=== PATIENT | female | born 1955 | race Caucasian/White ===

== ENCOUNTER 2018-01-29 08:18 | Emergency (ER) | payer OTHER ==
[2018-01-29 08:26] VITALS: RESP 18
--- NOTE | 2018-01-29 08:42 | ED ---
General Adult HPI - General Chief complaint: Head Injury Stated complaint: Fell/hit head Time Seen by Provider: 01/29/18 08:27 Source: patient, family, RN notes reviewed Mode of arrival: wheelchair Limitations: no limitations - History of Present Illness Initial comments: 62-year-old female presenting status post fall with head injury. Patient slipped on ice at approximately 7 AM which is an hour and half prior to presentation liking the back of her head. She did note a hematoma, no no bleeding or laceration. Patient currently takes 81 mg of aspirin daily. No anticoagulation. There was no loss of consciousness. No nausea or vomiting. Patient denies any focal numbness or weakness. No vision changes. Patient is otherwise healthy. Denies any other injury, no extremity pain, no chest pain no abdominal pain. No back pain. - Related Data Allergies Allergy/AdvReac Type Severity Reaction Status Date / Time No Known Allergies Allergy Verified 01/29/18 08:26 Review of Systems ROS Statement: Those systems with pertinent positive or pertinent negative responses have been documented in the HPI. ROS Other: All systems not noted in ROS Statement are negative. Past Medical History Past Medical History: Cancer Additional Past Medical History / Comment(s): breast cancer History of Any Multi-Drug Resistant Organisms: None Reported Past Surgical History: Breast Surgery Past Psychological History: No Psychological Hx Reported Smoking Status: Never smoker Past Alcohol Use History: Occasional Past Drug Use History: None Reported General Exam Limitations: no limitations General appearance: alert, in no apparent distress Head exam: Present: normocephalic. Absent: atraumatic (3 cm hematoma on the occipital region, no laceration or bleeding. No palpable skull fracture) Eye exam: Present: normal appearance, PERRL, EOMI Neck exam: Present: normal inspection, full ROM. Absent: tenderness, meningismus Respiratory exam: Present: normal lung sounds bilaterally. Absent: respiratory distress, wheezes Cardiovascular Exam: Present: regular rate, normal rhythm GI/Abdominal exam: Present: soft. Absent: distended, tenderness, guarding Extremities exam: Present: normal inspection, normal capillary refill. Absent: pedal edema Back exam: Present: normal inspection Neurological exam: Present: alert, oriented X3, CN II-XII intact, normal gait. Absent: motor sensory deficit Psychiatric exam: Present: normal affect, normal mood Skin exam: Present: warm, dry, intact. Absent: cyanosis, diaphoretic Course Vital Signs 01/29/18 08:23 Temperature 98.5 F Pulse Rate 100 Respiratory 18 Rate Blood Pressure 181/99 O2 Sat by Pulse 98 Oximetry Medical Decision Making - Medical Decision Making 62-year-old female presenting status post slip and fall with occipital head trauma. No alarming features on history or physical exam. CT of the head and cervical spine is obtained, negative for intracranial hemorrhage, negative for fracture or subluxation of the cervical spine. Diagnosis: Closed head injury Disposition Clinical Impression: Closed head injury Disposition: HOME SELF-CARE Condition: Good Instructions: Concussion (ED) Referrals: Dima Nino MD [Primary Care Provider] - 1-2 days Time of Disposition: 09:17
--- NOTE | 2018-01-29 09:05 | CT ---
EXAMINATION TYPE: CT brain julieth marie DATE OF EXAM: 01/29/2018 COMPARISON: NONE HISTORY: Slipped on ice, struck back of head on driveway CT DLP: [address] of the brain was performed. The ventricles, basal cisterns and sulci overlying the cerebral convexities demonstrate mild enlargem ent. There is no evidence for intracranial hemorrhage or sulcal effacement. There is decreased attenuatio n about the periventricular white matter and deep white matter of both cerebral hemispheres, compatib le with chronic small vessel ischemia. No mass effects are seen. If symptoms persist consider MRI. Osseous calvarium is intact. Occipital scalp hematoma. IMPRESSION: 1. Age related atrophic and chronic small vessel ischemic change without acute intracranial process seen at this time. CT Cervical Spine: Unenhanced CT of the cervical spine was performed with bone and soft tissue window settings submitted . Coronal and sagittal reconstruction is obtained. There is normal alignment and prevertebral soft tissues. No evidence for acute cervical fracture . Scattered degenerative disc disease and spondylosis. Biapical scarring. IMPRESSION: 1. No evidence for acute fracture or subluxation of the cervical spine.
[2018-01-29 09:28] VITALS: BP 143/71; PULSE 104; TEMP 98
== END 2018-01-29 09:36 | disposition home or self-care (01) ==
LOC: EC 08:18
DX: S00.03XA Contusion of scalp, initial encounter (principal); Z85.3 Personal history of malignant neoplasm of breast; Z79.82 Long term (current) use of aspirin; W00.0XXA Fall on same level due to ice and snow, initial encounter
CPT/HCPCS: 70450; 72125; 99283

== ENCOUNTER 2018-11-20 16:33 | Inpatient (IN) | payer MEDICARE, OTHER ==
[2018-11-20] MEDS ORDERED: SODIUM CHLORIDE 0.9% 1,000 ML IV STA (16:37)
[2018-11-20] MEDS ORDERED: NITROGLYCERIN SL TABS 0.4 MG TAB SUBLINGUAL STA (16:37)
--- NOTE | 2018-11-20 16:43 | ED ---
Chest Pain HPI - General Stated Complaint: CHEST PAIN Time Seen by Provider: 11/20/18 16:33 Source: patient, family, EMS, RN notes reviewed Mode of arrival: EMS - History of Present Illness Initial Comments: This is a 63-year-old female with a benign past medical history states she had the onset about one half hours of retrosternal chest discomfort felt like indigestion. She states the pain initially was 6-7/10 severity she was given nitroglycerin times one as well as 4 baby aspirin the pain is down to about a 4/ 10 now. EKG was transmitted which did show evidence of a left exodeviation nonspecific anteroseptal changes no cough or phlegm production she did have some sweats with this earlier. He has no known heart or lung disease is a nonsmoker he states she's been having this pain for a couple weeks. MD Complaint: chest pain - Related Data Home Medications Medication Instructions Recorded Confirmed Alendronate Sodium [Fosamax] 70 mg PO MOTTA 01/29/18 11/20/18 Aspirin 81 mg PO DAILY 01/29/18 11/20/18 Multivitamins, Thera [Multivitamin 1 tab PO DAILY 01/29/18 11/20/18 (formulary)] Simvastatin [Zocor] 20 mg PO QAM 01/29/18 11/20/18 Calcium Carbonate [Calcium] 600 mg PO DAILY 11/20/18 11/20/18 Allergies Allergy/AdvReac Type Severity Reaction Status Date / Time No Known Allergies Allergy Verified 11/20/18 16:52 Review of Systems ROS Statement: Those systems with pertinent positive or pertinent negative responses have been documented in the HPI. ROS Other: All systems not noted in ROS Statement are negative. Past Medical History Past Medical History: Cancer Additional Past Medical History / Comment(s): breast cancer History of Any Multi-Drug Resistant Organisms: None Reported Past Surgical History: Breast Surgery Past Psychological History: No Psychological Hx Reported Smoking Status: Never smoker Past Alcohol Use History: Occasional Past Drug Use History: None Reported General Exam - General Exam Comments Initial Comments: This is a well-developed well-nourished awake alert oriented x 3 female General appearance: alert, anxious Head exam: Present: atraumatic, normocephalic, normal inspection Eye exam: Present: normal appearance, PERRL, EOMI. Absent: scleral icterus, conjunctival injection, periorbital swelling ENT exam: Present: normal exam, mucous membranes moist Neck exam: Present: normal inspection, full ROM, other (No stridor JVD or bruits ). Absent: tenderness, meningismus, lymphadenopathy Respiratory exam: Present: normal lung sounds bilaterally. Absent: respiratory distress, wheezes, rales, rhonchi, stridor Cardiovascular Exam: Present: regular rate, normal rhythm, normal heart sounds. Absent: systolic murmur, diastolic murmur, rubs, gallop, clicks GI/Abdominal exam: Present: soft, normal bowel sounds. Absent: distended, tenderness, guarding, rebound, rigid Extremities exam: Present: normal inspection, full ROM, normal capillary refill. Absent: tenderness, pedal edema, joint swelling, calf tenderness Back exam: Present: normal inspection Neurological exam: Present: alert, oriented X3, CN II-XII intact Psychiatric exam: Present: normal affect, normal mood Skin exam: Present: warm, dry, intact, normal color. Absent: rash Course Vital Signs 11/20/18 11/20/18 16:36 17:00 Temperature 98.5 F Pulse Rate 88 Respiratory 18 18 Rate Blood Pressure 148/84 148/84 O2 Sat by Pulse 97 96 Oximetry - Reevaluation(s) Reevaluation #1: 11/20/18 18:36 Patient still had some chest discomfort which should resolve ultimately. The patient d-dimer was elevated a CAT scan was performed that showed no evidence of pulmonary embolism was some evidence of a ascending aortic aneurysm please see the report Reevaluation #2: 11/20/18 18:38 I did discuss findings with patient family after all results were obtained is elevation of the troponin EKG showed bundle-branch block pattern of undetermined age. Chest Pain MDM - MDM I did review the imaging. It did show the findings as above I did discuss the case with Dr. Feldman and with Dr. Washington Critical Care Time Critical Care Time: Yes Critical Care Time: 39 minutes of critical care time which includes initial presentation with history physical labs x-rays several reevaluation patient responsive therapy several discussions with patient and family members. Discussed with the admitting physician and with cardiology Dr. feldman and Dr. Washington admission orders neck mentation the above Disposition Clinical Impression: Non-ST elevation myocardial infarction (NSTEMI), Bundle branch block, left, Elevated d-dimer Disposition: ADMITTED IP TO THIS HOSP Condition: Stable Referrals: Dima Nino MD [Primary Care Provider] - 1-2 days
[2018-11-20 17:15] LABS: Basophils # (A) 0.1 k/uL (0-0.2); Basophils % (A) 1 %; Eosinophils # (A) 0.2 k/uL (0-0.7); Eosinophils % (A) 2 %; HCT 39.7 % (34.0-46.0); HGB 13.2 gm/dL (11.4-16.0); Lymphocytes # (A) 1.2 k/uL (1.0-4.8); Lymphocytes % (A) 14 %; MCHC 33.2 g/dL (31.0-37.0); MCV 90.2 fL (80.0-100.0); Mean Platelet Volume 6.7; Monocytes # (A) 0.4 k/uL (0-1.0); Monocytes % (A) 4 %; Neutrophils # (A) 6.4 k/uL (1.3-7.7); Neutrophils % (A) 78 %; Platelet Count 294 k/uL (150-450); RDW 13.6 % (11.5-15.5); WBC 8.3 k/uL (3.8-10.6)
[2018-11-20 17:24] LABS: ALT 48 U/L (9-52); AST 59 U/L (14-36); Albumin 4.3 g/dL (3.5-5.0); Alkaline Phosphatase 62 U/L (38-126); Anion Gap 12 mmol/L; Blood Urea Nitrogen 18 mg/dL (7-17); Calcium 9.8 mg/dL (8.4-10.2); Carbon Dioxide 19 mmol/L (22-30); Chloride 106 mmol/L (98-107); Glucose 104 mg/dL (74-99); Magnesium 2.2 mg/dL (1.6-2.3); Potassium 4.2 mmol/L (3.5-5.1); Sodium 137 mmol/L (137-145); Total Bilirubin 1.1 mg/dL (0.2-1.3); Total Protein 7.5 g/dL (6.3-8.2)
[2018-11-20 17:25] LABS: Partial Thromboplastin Time 23.7 sec (22.0-30.0); Prothrombin Time 10.6 sec (9.0-12.0)
[2018-11-20 17:28] LABS: D-Dimer 0.93 mg/L FEU (<0.60)
[2018-11-20 17:40] LABS: Creatine Kinase MB 6.6 ng/mL (0.0-2.4)
[2018-11-20 17:53] LABS: Troponin I 0.191 ng/mL (0.000-0.034)
--- NOTE | 2018-11-20 18:06 | CT ---
EXAMINATION TYPE: CT angio chest DATE OF EXAM: 11/20/2018 5:56 PM COMPARISON: None HISTORY: Chest pain today CT DLP: 262.8 mGycm Automated exposure control for dose reduction was used. CONTRAST: CTA scan of the thorax is performed with IV Contrast, patient injected with 100 mL of Isovue 370, pul monary embolism protocol. There are 3-D post processed images.. FINDINGS: There is minimal scarring and subsegmental atelectasis at the lung bases. Heart appears enlarged. The re is no pericardial effusion. There is no pleural effusion. There is small hiatal hernia. There is a 1 cm cyst in the left lobe of the liver. There are no hilar masses. There is no mediastinal adenopathy. Thoracic aorta is is atheromatous. The re is mild aneurysm of ascending aorta measures 4.1 cm. There is no contrast in the aorta for evaluat ion of the lumen. There is normal contrast opacification of the pulmonary arteries. There are no filling defects. There is some mild spurring in the thoracic spine. I see no bony destructive process. IMPRESSION: NO EVIDENCE OF PULMONARY EMBOLISM. MILD ANEURYSM ASCENDING AORTA. MILD FIBROTIC CHANGES AT THE LUNG BASES. Cardiomegaly.
[2018-11-20] MEDS ORDERED: HEPARIN SODIUM,PORCINE 5,000 UNIT/ML 1 ML VIAL IV ONE (18:43)
[2018-11-20] MEDS ORDERED: NITROGLYCERIN SL TABS 0.4 MG TAB SUBLINGUAL PRN (18:43)
[2018-11-20] MEDS ORDERED: FUROSEMIDE 10 MG/ML 4 ML VIAL IV STA (18:57)
[2018-11-20] MEDS: SODIUM CHLORIDE 0.9% 1,000 ML IV SCH (18:57)
[2018-11-20] MEDS: HEPARIN SOD,PORK IN 0.45% NACL 25,000 UNIT in 0.45% NACL 1 250ML.BAG IV SCH (19:27)
[2018-11-20 23:45] LABS: Creatine Kinase MB 48.3 ng/mL (0.0-2.4)
[2018-11-20 23:51] LABS: Troponin I 7.33 ng/mL (0.000-0.034)
[2018-11-21] MEDS: NITROGLYCERIN OINT 1 INCH/GM PACKET TOPICAL SCH ×2 (01:20→09:19)
[2018-11-21 06:32] LABS: Cholesterol 190 mg/dL (<200); HDL Cholesterol 51 mg/dL (40-60); LDL Cholesterol,Calculated 114 mg/dL (0-99); Triglycerides 126 mg/dL (<150)
[2018-11-21 06:50] LABS: Creatine Kinase MB 37.2 ng/mL (0.0-2.4)
[2018-11-21 06:59] LABS: Troponin I 6.43 ng/mL (0.000-0.034)
--- NOTE | 2018-11-21 07:01 | HP ---
HISTORY AND PHYSICAL DATE OF SERVICE: 11/20/2018 CHIEF COMPLAINT: Chest pain. HISTORY OF PRESENT ILLNESS: This 63-year-old woman with a past medical history of multiple medical problems including breast cancer, history of breast surgery being followed by Dr. Nino in the outpatient setting was complaining of chest pain. The patient had a pain, which felt like indigestion, initially 6 to 7 in intensity where patient took 4 baby aspirins and EKG showed ST-T changes and patient came to [facility] and admitted for further evaluation and treatment. The troponins are found to be 0.191 and 7.330. The patient has been closely monitored. There is no history of any fever, rigors. No history of headache, loss of consciousness or seizures. The pain has subsided at this time. EKG showed left bundle branch block. PAST MEDICAL HISTORY: History of breast cancer, history of breast surgery. MEDICATIONS: Medications prior to admission include: 1. Zocor 20 mg q.a.m. 2. Multivitamins 1 p.o. daily. 3. Calcium 600 mg p.o. daily. 4. Aspirin 81 mg daily. 5. Fosamax 70 mg Sunday. ALLERGIES: Allergies are none. FAMILY HISTORY: No history of heart disease or strokes in the family. SOCIAL HISTORY: No history of smoking. No history of alcohol intake. REVIEW OF SYSTEMS: ENT: No history of diminished hearing or diminished vision. CARDIOVASCULAR SYSTEM: As mentioned earlier. RESPIRATORY SYSTEM: As mentioned earlier. GI: No nausea. : No dysuria. NERVOUS SYSTEM: No numbness or weakness. ALLERGY/IMMUNOLOGY: No history of asthma. MUSCULOSKELETAL: As mentioned earlier. HEMATOLOGY/ONCOLOGY: No history of anemia. ENDOCRINE: No history of diabetes or hypothyroidism. CONSTITUTIONAL: As mentioned earlier. DERMATOLOGY: Negative. RHEUMATOLOGY: Negative. PSYCHIATRY: As mentioned earlier. PHYSICAL EXAMINATION: The patient is alert and oriented x3. Pulse 95, blood pressure 110/63, respiration 21, temperature 98 degrees, pulse ox 93% on room air. HEENT: Conjunctivae normal. NECK: No jugular venous distention. CARDIOVASCULAR: S1, S2 muffled. RESPIRATORY: Breath sounds diminished at the bases. No rhonchi. No crackles. ABDOMEN: Soft, nontender. No mass palpable. LEGS: No edema, no swelling. NERVOUS SYSTEM: Higher function as mentioned. Moves all 4 limbs. No focal deficits. LYMPHATICS: No lymphadenopathy of the neck, axillae or groin. SKIN: No ulcer, rash or bleeding. LABS: Labs are at this time shows CBC within normal limits and D-dimer is 0.93. The troponins noted. Creatine kinase noted. ASSESSMENT: 1. Chest pain, possible acute non-ST segment elevation myocardial infarction with troponin 7.330. 2. Left bundle branch block on EKG. 3. History of breast cancer. RECOMMENDATIONS AND DISCUSSION: In this 63-year-old woman who presented with multiple complex medical issues, will monitor the patient closely. Continue the current medications, continue symptomatic treatment as well as unstable angina protocol, cardiology consult and possible cardiac cath. Otherwise, prognosis guarded because of multiple complex medical issues. Further recommendations to follow. See orders and notes for details. Copy of dictation to Dr. Nino who is the primary physician. MMMAE / DEO: [id number] / MTDD
--- NOTE | 2018-11-21 08:39 | P.CRDCN ---
History of Present Illness Consult date: 11/21/18 Requesting physician: Ralph Gonzales Consult reason: non-[facility]-wave [facility] Chief complaint: Chest pain History of present illness: This is a pleasant 63-year-old female with no prior documented history of hypertension, nondiabetic, nonsmoker, she does have hyperlipidemia for which she takes a statin, patient also takes a baby aspirin a day as well as calcium supplementation. She presented to the emergency room with symptoms of midsternal chest tightness with associated diaphoresis and a clammy feeling. According to the patient, she has been noticing these symptoms off and on for several months, thinking it was heartburn. The symptoms would usually come last for a couple of minutes and subside. When the symptoms started yesterday, they persisted and for this reason she came to the emergency room for further evaluation and treatment. Initial EKG on arrival here showed a normal sinus rhythm with a left bundle-branch block pattern and nonspecific ST-T wave changes. CTA of the chest was also performed which did not reveal evidence of a pulmonary embolism. Mild aneurysm of the ascending aorta noted. Blood pressure 110/70 with a heart rate in the 70s to 80s, 98% on 3 L of oxygen. White blood cell count is normal, hemoglobin 13.2, platelet count 294. D-dimer 0.9. Sodium 137, potassium 4.2, BUN 18, creatinine 0.7. Magnesium is 2.2. Troponin 0.19, 7.3, 6.4. BNP level 2260. Cholesterol 190, LDL 114, triglycerides 126 and HDL 51. Patient was seen and examined in the emergency room, she denies any chest pain at present. She is currently on IV heparin. We will increase the Lipitor to 80 mg daily continue IV heparin. Patient has been advised to undergo cardiac catheterization, the risks and the benefits were explained to her in detail and she is willing to proceed. We will obtain a stat echocardiogram with Doppler study. Past Medical History Past Medical History: Cancer Additional Past Medical History / Comment(s): breast cancer History of Any Multi-Drug Resistant Organisms: None Reported Past Surgical History: Breast Surgery Past Psychological History: No Psychological Hx Reported Smoking Status: Never smoker Past Alcohol Use History: Occasional Past Drug Use History: None Reported Medications and Allergies Home Medications Medication Instructions Recorded Confirmed Type Alendronate Sodium [Fosamax] 70 mg PO MOTTA 01/29/18 11/20/18 History Aspirin 81 mg PO DAILY 01/29/18 11/20/18 History Multivitamins, Thera [Multivitamin 1 tab PO DAILY 01/29/18 11/20/18 History (formulary)] Simvastatin [Zocor] 20 mg PO QAM 01/29/18 11/20/18 History Calcium Carbonate [Calcium] 600 mg PO DAILY 11/20/18 11/20/18 History Allergies Allergy/AdvReac Type Severity Reaction Status Date / Time No Known Allergies Allergy Verified 11/20/18 16:52 Physical Exam Vitals: Vital Signs Temp Pulse Resp BP Pulse Ox 11/21/18 05:48 98.1 F 84 21 98/62 98 11/21/18 02:00 77 18 111/71 98 11/21/18 01:00 92 19 117/71 100 11/21/18 00:00 80 19 111/60 96 11/20/18 23:58 85 28 H 111/60 96 11/20/18 23:00 94 12 107/72 94 L 11/20/18 22:00 95 21 110/63 93 L 11/20/18 21:00 96 20 128/67 96 11/20/18 20:00 105 H 20 133/85 96 11/20/18 19:52 98.0 F 11/20/18 19:00 94 19 137/92 96 11/20/18 18:00 93 20 139/73 96 11/20/18 17:30 93 20 136/89 96 11/20/18 17:00 18 148/84 96 11/20/18 16:36 98.5 F 88 18 148/84 97 Intake and Output 11/20/18 11/21/18 11/21/18 22:59 06:59 14:59 Other: Weight 79.379 kg PHYSICAL EXAMINATION: GENERAL: 63-year-old female in no acute distress at the time of my examination HEENT: Head is atraumatic, normocephalic. Pupils equal, round. Sclera anicteric. Conjunctiva are clear. Mucous membranes of the mouth are moist. Neck is supple. There is no elevated jugular venous pressure. No carotid bruit is heard. HEART EXAMINATION: Heart S1, S2 normal. No murmur or gallop heard. CHEST EXAMINATION: Lungs are clear to auscultation and precussion. No chest wall tenderness is noted on palpation or with deep breathing. ABDOMEN: Soft, nontender. Bowel sounds are heard. No organomegaly noted. EXTREMITIES: 2+ peripheral pulses with no evidence of peripheral edema and no calf tenderness noted. NEUROLOGIC patient is awake, alert and oriented 3 . . Results 11/20/18 16:50 11/20/18 16:50 Cardiac Enzymes 11/20/18 11/20/18 11/20/18 Range/Units 16:50 16:50 22:55 AST 59 H (14-36) U/L CK-MB (CK-2) 6.6 H 48.3 H (0.0-2.4) ng/mL Troponin I 0.191 H* 7.330 H* (0.000-0.034) ng/mL 11/21/18 Range/Units 05:41 AST (14-36) U/L CK-MB (CK-2) 37.2 H (0.0-2.4) ng/mL Troponin I 6.430 H* (0.000-0.034) ng/mL Coagulation 11/20/18 11/21/18 Range/Units 16:50 01:00 PT 10.6 (9.0-12.0) sec APTT 23.7 37.8 H (22.0-30.0) sec Lipids 11/21/18 Range/Units 05:41 Triglycerides 126 (<150) mg/dL Cholesterol 190 (<200) mg/dL HDL Cholesterol 51 (40-60) mg/dL CBC 11/20/18 Range/Units 16:50 WBC 8.3 (3.8-10.6) k/uL RBC 4.40 (3.80-5.40) m/uL Hgb 13.2 (11.4-16.0) gm/dL Hct 39.7 (34.0-46.0) % Plt Count 294 (150-450) k/uL Comprehensive Metabolic Panel 11/20/18 Range/Units 16:50 Sodium 137 (137-145) mmol/L Potassium 4.2 (3.5-5.1) mmol/L Chloride 106 (98-107) mmol/L Carbon Dioxide 19 L (22-30) mmol/L BUN 18 H (7-17) mg/dL Creatinine 0.72 (0.52-1.04) mg/dL Glucose 104 H (74-99) mg/dL Calcium 9.8 (8.4-10.2) mg/dL AST 59 H (14-36) U/L ALT 48 (9-52) U/L Alkaline Phosphatase 62 (38-126) U/L Total Protein 7.5 (6.3-8.2) g/dL Albumin 4.3 (3.5-5.0) g/dL Current Medications Generic Name Dose Route Start Last Admin Trade Name Reedq PRN Reason Stop Dose Admin Aspirin 325 mg 11/21/18 09:00 Aspirin PO DAILY [facility] Atorvastatin Calcium 10 mg 11/21/18 09:00 Lipitor PO QAM [facility] Calcium Carbonate/Glycine 500 mg 11/21/18 12:00 Tums PO 1200 [facility] Sodium Chloride 1,000 mls @ 50 mls/hr 11/20/18 16:37 11/20/18 17:05 Saline 0.9% IV 11/21/18 12:36 50 mls/hr .Q20H STA Administration Heparin Sodium/Sodium Chloride 250 mls @ 9.52 mls/hr 11/20/18 18:45 11/20/18 19:27 25,000 unit/ Sodium Chloride IV 12 units/kg/hr .Q24H ALE 9.52 mls/hr Administration Protocol 12 UNITS/KG/HR Sodium Chloride 1,000 mls @ 20 mls/hr 11/20/18 18:45 11/20/18 18:57 Saline 0.9% IV 20 mls/hr .Q24H ALE Administration Multivitamins 1 each 11/21/18 12:00 Theragran PO 1200 [facility] Nitroglycerin 1 inch 11/21/18 00:00 11/21/18 01:20 Nitro-Bid Oint TOPICAL 1 inch Q6HR ALE Administration Nitroglycerin 0.4 mg 11/20/18 18:43 Nitrostat SUBLINGUAL Q5M PRN Chest Pain Intake and Output 11/20/18 11/21/18 11/21/18 22:59 06:59 14:59 Other: Weight 79.379 kg 11/20/18 16:50 11/20/18 16:50 EKG Interpretations (text) EKG shows a normal sinus rhythm with a left bundle-branch block pattern and nonspecific ST-T wave changes Assessment and Plan Plan: Assessment and plan #1 non-ST elevation myocardial infarction #2 hyperlipidemia Plan We will obtain a stat echocardiogram with Doppler study. Patient has also been advised to undergo cardiac catheterization, the risks and the benefits were explained to the patient in detail. We'll increase the Lipitor to 80 mg daily. Continue IV heparin. Further recommendations will be based on these findings and patient's clinical course. DNP note has been reviewed, I agree with a documented findings and plan of care. Patient was seen and examined.
[2018-11-21] MEDS ORDERED: ASPIRIN 325 MG TAB PO SCH (09:00)
[2018-11-21] MEDS ORDERED: ATORVASTATIN 10 MG TAB PO SCH (09:00)
[2018-11-21] MEDS: ATORVASTATIN 80 MG TAB PO SCH (09:19)
[2018-11-21] MEDS ORDERED: NITROGLYCERIN SL TABS 0.4 MG TAB SUBLINGUAL PRN (09:35)
[2018-11-21] MEDS ORDERED: SODIUM CHLORIDE 0.9% 1,000 ML in EMPTY BAG 1 BAG IV ONE (09:35)
[2018-11-21] MEDS ORDERED: ATORVASTATIN 80 MG TAB PO STA (09:35)
[2018-11-21] MEDS ORDERED: ALPRAZolam 0.25 MG TAB PO PRN (09:35)
[2018-11-21] MEDS ORDERED: ALPRAZolam 0.5 MG TAB PO PRN (09:35)
[2018-11-21] MEDS ORDERED: ASPIRIN 325 MG TAB PO STA (09:35)
--- NOTE | 2018-11-21 09:38 | P.CRDCN ---
History of Present Illness History of present illness: Patient interviewed and examined Impression Patient with with recurrent chest discomfort Twelve-lead ECG shows a left bundle branch block pattern, sinus rhythm Abnormal troponins of 0.2 him a 7.3 and 6.4 NT proBNP 2260 Normal renal function Normal electrolytes normal potassium LDL 114 on statins total close to 190, triglycerides 126 and HDL 51 No evidence for pulmonary embolism. Mild aneurysm of the ascending aorta 4.1 cm There was no contrast in the lumen of the aorta Severe LV dysfunction dilated left ventricle left radical ejection fraction severely reduced. Only the inferobasal segment appears to be magui Moderate severe mitral regurgitation Suggest Patient states that she had a viral infection around 2017. She has had symptoms for about a year mild shortness of breath recurrent midsternal chest discomfort TSH level Coronary angiography Medical treatment for cardio myopathy and any associated conditions Past Medical History Past Medical History: Cancer Additional Past Medical History / Comment(s): breast cancer History of Any Multi-Drug Resistant Organisms: None Reported Past Surgical History: Breast Surgery Past Psychological History: No Psychological Hx Reported Smoking Status: Never smoker Past Alcohol Use History: Occasional Past Drug Use History: None Reported Medications and Allergies Home Medications Medication Instructions Recorded Confirmed Type Alendronate Sodium [Fosamax] 70 mg PO MOTTA 01/29/18 11/20/18 History Multivitamins, Thera [Multivitamin 1 tab PO DAILY 01/29/18 11/20/18 History (formulary)] RX: Aspirin 81 mg PO DAILY 01/29/18 11/20/18 History Simvastatin [Zocor] 20 mg PO QAM 01/29/18 11/20/18 History Calcium Carbonate [Calcium] 600 mg PO DAILY 11/20/18 11/20/18 History Allergies Allergy/AdvReac Type Severity Reaction Status Date / Time No Known Allergies Allergy Verified 11/20/18 16:52 Physical Exam Vitals: Vital Signs Temp Pulse Resp BP Pulse Ox 11/21/18 08:59 109 H 16 105/80 96 11/21/18 05:48 98.1 F 84 21 98/62 98 11/21/18 02:00 77 18 111/71 98 11/21/18 01:00 92 19 117/71 100 11/21/18 00:00 80 19 111/60 96 11/20/18 23:58 85 28 H 111/60 96 11/20/18 23:00 94 12 107/72 94 L 11/20/18 22:00 95 21 110/63 93 L 11/20/18 21:00 96 20 128/67 96 11/20/18 20:00 105 H 20 133/85 96 11/20/18 19:52 98.0 F 11/20/18 19:00 94 19 137/92 96 11/20/18 18:00 93 20 139/73 96 11/20/18 17:30 93 20 136/89 96 11/20/18 17:00 18 148/84 96 11/20/18 16:36 98.5 F 88 18 148/84 97 Intake and Output 11/20/18 11/21/18 11/21/18 22:59 06:59 14:59 Other: Weight 79.379 kg Results 11/20/18 16:50 11/20/18 16:50 Cardiac Enzymes 11/20/18 11/20/18 11/20/18 Range/Units 16:50 16:50 22:55 AST 59 H (14-36) U/L CK-MB (CK-2) 6.6 H 48.3 H (0.0-2.4) ng/mL Troponin I 0.191 H* 7.330 H* (0.000-0.034) ng/mL 11/21/18 Range/Units 05:41 AST (14-36) U/L CK-MB (CK-2) 37.2 H (0.0-2.4) ng/mL Troponin I 6.430 H* (0.000-0.034) ng/mL Coagulation 11/20/18 11/21/18 Range/Units 16:50 01:00 PT 10.6 (9.0-12.0) sec APTT 23.7 37.8 H (22.0-30.0) sec Lipids 11/21/18 Range/Units 05:41 Triglycerides 126 (<150) mg/dL Cholesterol 190 (<200) mg/dL HDL Cholesterol 51 (40-60) mg/dL CBC 11/20/18 Range/Units 16:50 WBC 8.3 (3.8-10.6) k/uL RBC 4.40 (3.80-5.40) m/uL Hgb 13.2 (11.4-16.0) gm/dL Hct 39.7 (34.0-46.0) % Plt Count 294 (150-450) k/uL Comprehensive Metabolic Panel 11/20/18 Range/Units 16:50 Sodium 137 (137-145) mmol/L Potassium 4.2 (3.5-5.1) mmol/L Chloride 106 (98-107) mmol/L Carbon Dioxide 19 L (22-30) mmol/L BUN 18 H (7-17) mg/dL Creatinine 0.72 (0.52-1.04) mg/dL Glucose 104 H (74-99) mg/dL Calcium 9.8 (8.4-10.2) mg/dL AST 59 H (14-36) U/L ALT 48 (9-52) U/L Alkaline Phosphatase 62 (38-126) U/L Total Protein 7.5 (6.3-8.2) g/dL Albumin 4.3 (3.5-5.0) g/dL Current Medications Generic Name Dose Route Start Last Admin Trade Name Freq PRN Reason Stop Dose Admin Alprazolam 0.25 mg 11/21/18 09:35 Xanax PO Q6HR PRN Mild Anxiety Alprazolam 0.5 mg 11/21/18 09:35 Xanax PO Q6HR PRN Moderate Anxiety Aspirin 325 mg 11/21/18 09:00 11/21/18 09:19 Aspirin PO 325 mg DAILY ALE Administration Aspirin 325 mg 11/21/18 09:35 Aspirin PO 11/21/18 09:36 ONCE STA Atorvastatin Calcium 80 mg 11/21/18 09:00 11/21/18 09:19 Lipitor PO 80 mg QAM ALE Administration Atorvastatin Calcium 80 mg 11/21/18 09:35 Lipitor PO 11/21/18 09:36 ONCE STA Calcium Carbonate/Glycine 500 mg 11/21/18 12:00 Tums PO 1200 ALE Heparin Sodium/Sodium Chloride 250 mls @ 9.52 mls/hr 11/20/18 18:45 11/20/18 19:27 25,000 unit/ Sodium Chloride IV 12 units/kg/hr .Q24H ALE 9.52 mls/hr Administration Protocol 12 UNITS/KG/HR Sodium Chloride 1,000 mls @ 20 mls/hr 11/20/18 18:45 11/20/18 18:57 Saline 0.9% IV 20 mls/hr .Q24H ALE Administration Sodium Chloride 1,000 ml/ IV 1,000 mls @ 79.37 mls/hr 11/21/18 09:35 Solution IV 11/21/18 22:10 .[id number] ONE 1 ML/KG/HR Metoprolol Tartrate 12.5 mg 11/21/18 09:00 Lopressor PO BID [facility] Multivitamins 1 each 11/21/18 12:00 Theragran PO 1200 [facility] Nitroglycerin 1 inch 11/21/18 00:00 11/21/18 09:19 Nitro-Bid Oint TOPICAL 1 inch Q6HR ALE Administration Nitroglycerin 0.4 mg 11/20/18 18:43 Nitrostat SUBLINGUAL Q5M PRN Chest Pain Nitroglycerin 0.4 mg 11/21/18 09:35 Nitrostat SUBLINGUAL Q5M PRN Chest Pain Intake and Output 11/20/18 11/21/18 11/21/18 22:59 06:59 14:59 Other: Weight 79.379 kg 11/20/18 16:50 11/20/18 16:50
--- NOTE | 2018-11-21 09:51 | ECHOF ---
Referral Reason:assess lvf MEASUREMENTS -------- HEIGHT: 160.0 cm WEIGHT: 79.4 kg BP: IVSd: 1.3 cm (0.6 - 1.1) LVIDd: 5.9 cm (3.9 - 5.3) LVPWd: 1.2 cm (0.6 - 1.1) IVSs: 1.2 cm LVIDs: 5.2 cm LVPWs: 1.6 cm LA Diam: 5.4 cm (2.7 - 3.8) LAESV Index (A-L): 48.05 ml/m MV EXCURSION: 16.312 mm (> 18.000) MV EF SLOPE: 91 mm/s (70 - 150) EPSS: 1.6 cm MV E Jameel: 0.96 m/s MV DecT: 210 ms MV A Jameel: 0.78 m/s MV E/A Ratio: 1.23 AR PHT: 340 ms RAP: 5.00 mmHg RVSP: 37.91 mmHg FINDINGS -------- Sinus rhythm. This was a techncally difficult study with suboptimal views, , Lumason utilized for enhancement of im ages. The left ventricular size is normal. Left ventricular wall thickness is normal. There is severe g lobal hypokinesis of LV . Overall left ventricular systolic function is severely impaired with, an EF < 20%.only basal inferiolateral segments are magui The right ventricle is normal in size. The left atrium is markedly dilated. LA is severely dilated >40 ml/m2 The right atrial size is normal. 5.0mg OF Lumason UTLIZED: 2 OR MORE WALL SEGMENTS NOT VISUALIZED. There is mild aortic regurgitation. The mitral valve leaflets are mildly thickened. Mild mitral annular calcification present. Modera [id number] mitral regurgitation is present. Mild tricuspid regurgitation present. There is mild pulmonary hypertension. The right ventricular systolic pressure, as measured by Doppler, is 37.91mmHg. There is no pulmonic regurgitation present. The aortic root size is normal. There is no pericardial effusion. CONCLUSIONS -------- 1. This was a techncally difficult study with suboptimal views, , Lumason utilized for enhancement of images. 2. The left ventricular size is normal. 3. Left ventricular wall thickness is normal. 4. There is severe global hypokinesis of LV . 5. Overall left ventricular systolic function is severely impaired with, an EF < 20%. 6. The right ventricle is normal in size. 7. The left atrium is markedly dilated. 8. LA is severely dilated >40 ml/m2 9. The right atrial size is normal. 10. 5.0mg OF Lumason UTLIZED: 2 OR MORE WALL SEGMENTS NOT VISUALIZED. 11. There is mild aortic regurgitation. 12. The mitral valve leaflets are mildly thickened. 13. Mild mitral annular calcification present. 14. [id number]-[id number] mitral regurgitation is present. 15. Mild tricuspid regurgitation present. 16. There is mild pulmonary hypertension. 17. The right ventricular systolic pressure, as measured by Doppler, is 37.91mmHg. 18. There is no pulmonic regurgitation present. 19. The aortic root size is normal. 20. There is no pericardial effusion. MANAGER CLINICAL RESEARCH: Manisha Crook RDCS
[2018-11-21] MEDS ORDERED: IV FLUID CONTINUATION 700 ML IV ONE (09:57)
[2018-11-21] MEDS ORDERED: fentaNYL (PF) 50 MCG/ML 2 ML AMP IV ONE (10:08)
[2018-11-21] MEDS ORDERED: MIDAZOLAM 2 MG/2 ML VIAL IVP ONE (10:08)
[2018-11-21] MEDS ORDERED: LIDOCAINE 2% INJ 20 MG/ML SQ ONE (10:15)
[2018-11-21] MEDS ORDERED: NITROGLYCERIN 1000MCG/10ML SYRINGE INTRACORON ONE (10:30)
[2018-11-21] MEDS ORDERED: IOPAMIDOL-370 100ML BTL INJ ONE ×2 (10:34→10:35)
[2018-11-21] MEDS ORDERED: RX INFO: IV CONTRAST WAS GIVEN 1 EACH MISC MISCELLANE PRN (11:16)
--- NOTE | 2018-11-21 11:49 | CC ---
CARDIAC CATHETERIZATION REPORT Mrs Davis is a 63-year-old female who was admitted to the hospital with a complaint of chest pain. The patient had elevated troponin of about 6 to 8. EKG showed left bundle branch block pattern. Patient does not have any prior cardiac history. The patient did have some history suggestive of a recent viral illness. The patient was recommended to have a cardiac catheterization to rule out any significant coronary artery disease. PROCEDURE: The right groin was prepped and draped in the usual manner and the skin was infiltrated with 2% Xylocaine. The right femoral artery was entered using Seldinger technique and the micropuncture needle. Patient tolerated the procedure well. Sheath was removed and manual compression was good. Hemostasis was achieved with the manual compression. Total moderate sedation was used. Sedation time was 24 minutes. SELECTIVE CORONARY ANGIOGRAPHY: Left main coronary artery is normal and patent. LAD is a good caliber blood vessel and there is a 20% to 30% stenosis in its proximal portion. Circumflex coronary artery is a good caliber blood vessel and gives rise to a good size obtuse marginal branch. Circumflex coronary artery and its branches are normal. Right coronary artery is dominant in distribution and gives rise to good-sized PDA and PLV branches. There is minimal irregularity in the mid RCA. Left ventriculography was performed in 30-degree BOOKER projection. It reveals severe global hypokinesia with ejection fraction of 20%. Left ventricular end-diastolic pressure was 28 mmHg. FINAL IMPRESSION: This study reveals minimal coronary artery disease with about 20% to 30% stenosis in proximal LAD and mid RCA. Left ventriculography reveals a severe degree of global hypokinesia with ejection fraction of 20%. There is a mild to moderate mitral regurgitation. RECOMMENDATIONS: Intensive medical treatment and serial follow-up echocardiography. It is possible that the patient may have underlying cardiomyopathy and patient has a acute myocarditis superimposed on the chronic cardiomyopathy. MMODL / IJN: [id number] /
--- NOTE | 2018-11-21 17:14 | XR ---
EXAMINATION TYPE: XR chest 1V portable DATE OF EXAM: 11/21/2018 COMPARISON: NONE HISTORY: Heart failure TECHNIQUE: Single frontal view of the chest is obtained. FINDINGS: Heart is enlarged. There is no heart failure. There is some linear density in the left mid lung. Costophrenic angles are clear. There are clips at the right axilla. IMPRESSION: Cardiomegaly. Small linear density in the left midlung could relate to scarring or subse gmental atelectasis. No heart failure seen.
[2018-11-21] MEDS: SODIUM CHLORIDE 0.9% 1,000 ML IV SCH (19:03)
[2018-11-21] MEDS: METOPROLOL TARTRATE 12.5 MG TAB PO SCH ×2 (19:06→20:03)
[2018-11-21] MEDS: FUROSEMIDE 20 MG TAB PO SCH (19:12)
[2018-11-21] MEDS: CLOPIDOGREL 75 MG TAB PO SCH (19:12)
[2018-11-21] MEDS: CALCIUM CARBONATE 500 MG CHEWABLE PO SCH (19:12)
[2018-11-21] MEDS: MULTIVITAMINS, THERA 1 EACH TAB PO SCH (19:13)
[2018-11-21] MEDS: HEPARIN SOD,PORK IN 0.45% NACL 25,000 UNIT in 0.45% NACL 1 250ML.BAG IV SCH (19:13)
--- NOTE | 2018-11-21 19:49 | PN ---
PROGRESS NOTE DATE OF SERVICE: 11/21/2018 This 63-year-old gentleman admitted with chest pain had elevated troponins. The patient underwent cardiac catheterization which showed only severe global hypokinesis about 20% and as well as minimal coronary artery disease about 20-30% in the proximal LAD and RCA. The patient being closely monitored. Patient did not report any significant stressors. Cardiology is following the patient closely. A 2D echo with Doppler was also done which showed severe reduced ejection fraction and moderate to severe mitral regurgitation was also noted. PAST MEDICAL HISTORY: Reviewed. REVIEW OF SYSTEM: CARDIOVASCULAR: As mentioned earlier. RESPIRATORY: As mentioned earlier. GI: No nausea or vomiting. : No dysuria. CURRENT MEDICATIONS ARE: Reviewed and include: 1. Xanax 0.5 q.6h p.r.n. 2. Aspirin 81 mg. 3. Lipitor 80 mg. 4. TUMS. 5. Plavix 75 mg. 6. Lasix 20 mg daily. 7. Lopressor 12.5 mg b.i.d. 8. Multivitamins one p.o. daily. 9. Nitrostat sublingual p.r.n. EXAM: GENERAL: Patient is alert, oriented times three. VITAL SIGNS: Pulse is 93, blood pressure 90/60, respirations 16, temperature normal, pulse ox 94% on room air. HEENT: Conjunctivae normal. NECK: No jugular venous distention. No carotid bruit. No lymph node enlargement. CARDIOVASCULAR: S1, S2 muffled. Ejection systolic murmur. RESPIRATORY: Breath sounds diminished in the bases. A few scattered rhonchi and crackles. ABDOMEN is soft, nontender. LEGS are no edema. No swelling. CENTRAL NERVOUS SYSTEM: No focal deficits. LABORATORY DATA: WBC 3.9, hemoglobin ntd, sodium 137, potassium 4.2, troponin 7.330 and 6.43, LDL is 114. ASSESSMENT: 1. Chest pain with elevated troponin up to 7.330, possible takotsubo cardiomyopathy or possible acute myocarditis. 2. Ejection fraction 20% with chronic systolic dysfunction, cardiomyopathy, etiology uncertain. 3. Status post cardiac catheterization showing only minimal coronary artery disease about 20 to 30% stenosis of proximal LAD and RCA. 4. Moderate to severe mitral regurgitation. 5. Left bundle branch block on EKG. 6. History of breast cancer. 7. Hyperlipidemia. RECOMMENDATION: In this 63-year-old woman who presented with multiple complex medical issues, we will monitor the patient closely, continue the current medications, management and symptomatic treatment. The patient is started on high-dose Lipitor and beta blockers. Continue the current regimen and otherwise antiplatelet agents. Monitor the patient closely. Prognosis extremely guarded because of multiple complex medical issues. Further recommendations to follow. Takotsubo cardiomyopathy is also a consideration as well as myocarditis. See orders for details. MMODL / IJN: [id number] / MTDD
[2018-11-22] MEDS: ATORVASTATIN 80 MG TAB PO SCH (08:06)
[2018-11-22] MEDS: CLOPIDOGREL 75 MG TAB PO SCH (08:06)
[2018-11-22] MEDS: METOPROLOL TARTRATE 12.5 MG TAB PO SCH (08:06)
[2018-11-22] MEDS: ASPIRIN 81 MG PO SCH (08:06)
[2018-11-22] MEDS: FUROSEMIDE 20 MG TAB PO SCH (08:06)
[2018-11-22] MEDS: SPIRONOLACTONE 25 MG TAB PO SCH (10:05)
[2018-11-22] MEDS: CARVEDILOL 3.125 MG TAB PO SCH ×2 (10:43→16:48)
[2018-11-22] MEDS: HEPARIN SOD,PORK IN 0.45% NACL 25,000 UNIT in 0.45% NACL 1 250ML.BAG IV SCH (11:09)
[2018-11-22] MEDS: MULTIVITAMINS, THERA 1 EACH TAB PO SCH (11:12)
[2018-11-22] MEDS: CALCIUM CARBONATE 500 MG CHEWABLE PO SCH (11:12)
[2018-11-22 11:16] VITALS: BMI 30.6
--- NOTE | 2018-11-22 12:13 | P.PN ---
Subjective Patient is resting comfortably in bed no dizziness lightheadedness or palpitations No chest discomfort On examination afebrile 98.2F pulse rate 89 beats a minute blood pressure 108/ 71 mmHg Breath sounds are clear no rhonchi no crackles Normal S1 normal S2 no S3 gallop soft systolic murmur Impression Likely viral myocarditis Severe cardio myopathy with moderately severe mitral regurgitation murmur with a left bundle branch block Nonobstructive CAD that does not explain her current myopathy She had a viral syndrome/bronchitis around Thanks time Suggest Maximize current biopsy medications BMP tomorrow Carvedilol 3.15 g twice daily as bilateral 25 mg daily and tomorrow we will start losartan 12.5 g by mouth daily We will arrange for a LifeVest. I would recommend that she stay here to Sunday to maximize her medications. This lady has very severe LV dysfunction and a left bundle branch block Objective - Vital Signs Vital signs: Vital Signs Temp 98.2 F 11/22/18 11:07 Pulse 106 H 11/22/18 11:07 Resp 18 11/22/18 11:07 BP 102/61 11/22/18 11:07 Pulse Ox 95 11/22/18 11:07 Intake & Output 11/21/18 11/22/18 11/22/18 18:59 06:59 18:59 Intake Total 100 480 780 Balance 100 480 780 Weight 78.4 kg 78.4 kg Intake: Oral 100 480 780 Other: Voiding Method Toilet # Voids 2 2 - Labs CBC & Chem 7: 11/20/18 16:50 11/20/18 16:50
[2018-11-23 06:47] LABS: HCT 38.3 % (34.0-46.0); HGB 11.8 gm/dL (11.4-16.0); MCH 28.5 pg (25.0-35.0); MCHC 30.7 g/dL (31.0-37.0); MCV 92.8 fL (80.0-100.0); Mean Platelet Volume 6.6; Platelet Count 276 k/uL (150-450); RBC 4.13 m/uL (3.80-5.40); RDW 13.7 % (11.5-15.5); WBC 5.6 k/uL (3.8-10.6)
[2018-11-23] MEDS: CARVEDILOL 3.125 MG TAB PO SCH ×2 (06:51→17:29)
[2018-11-23 06:55] LABS: Anion Gap 8 mmol/L; Blood Urea Nitrogen 14 mg/dL (7-17); Calcium 9.1 mg/dL (8.4-10.2); Carbon Dioxide 20 mmol/L (22-30); Chloride 113 mmol/L (98-107); Glucose 88 mg/dL (74-99); Potassium 4.6 mmol/L (3.5-5.1); Sodium 141 mmol/L (137-145)
[2018-11-23] MEDS: ATORVASTATIN 20 MG TAB PO SCH (08:15)
[2018-11-23] MEDS: SPIRONOLACTONE 25 MG TAB PO SCH (08:15)
[2018-11-23] MEDS: FUROSEMIDE 20 MG TAB PO SCH (08:16)
[2018-11-23] MEDS: ASPIRIN 81 MG PO SCH (08:16)
[2018-11-23 11:15] LABS: Glucose,Whole Blood 101 mg/dL (75-99)
[2018-11-23] MEDS: LOSARTAN 25 MG TAB PO SCH (11:38)
[2018-11-23] MEDS: MULTIVITAMINS, THERA 1 EACH TAB PO SCH (11:38)
[2018-11-23] MEDS: CALCIUM CARBONATE 500 MG CHEWABLE PO SCH (11:38)
--- NOTE | 2018-11-23 15:29 | P.PN ---
Subjective Progress Note Date: 11/23/18 This is a pleasant 63-year-old female with no prior documented history of hypertension, nondiabetic, nonsmoker, she does have hyperlipidemia for which she takes a statin, patient also takes a baby aspirin a day as well as calcium supplementation. She presented to the emergency room with symptoms of midsternal chest tightness with associated diaphoresis and a clammy feeling. According to the patient, she has been noticing these symptoms off and on for several months, thinking it was heartburn. The symptoms would usually come last for a couple of minutes and subside. When the symptoms started yesterday, they persisted and for this reason she came to the emergency room for further evaluation and treatment. Initial EKG on arrival here showed a normal sinus rhythm with a left bundle-branch block pattern and nonspecific ST-T wave changes. CTA of the chest was also performed which did not reveal evidence of a pulmonary embolism. Mild aneurysm of the ascending aorta noted. Blood pressure 110/70 with a heart rate in the 70s to 80s, 98% on 3 L of oxygen. White blood cell count is normal, hemoglobin 13.2, platelet count 294. D-dimer 0.9. Sodium 137, potassium 4.2, BUN 18, creatinine 0.7. Magnesium is 2.2. Troponin 0.19, 7.3, 6.4. BNP level 2260. Cholesterol 190, LDL 114, triglycerides 126 and HDL 51. Patient was seen and examined in the emergency room, she denies any chest pain at present. She is currently on IV heparin. We will increase the Lipitor to 80 mg daily continue IV heparin. Patient has been advised to undergo cardiac catheterization, the risks and the benefits were explained to her in detail and she is willing to proceed. We will obtain a stat echocardiogram with Doppler study. 11/23/2018 Patient was taken to the cardiac catheterization lab where she was found to have minimal coronary artery disease with about 20-30% stenosis in the proximal LAD and mid RCA. Ejection fraction of 20% with evidence of global hypokinesia and moderate mitral regurgitation. Patient was seen and examined this morning, overall she feels well, denies any chest discomfort and overall her breathing has been stable. Hemodynamically she is stable. Patient has been educated in detail regarding placement of a LifeVest, this is expected to arrive tomorrow and we will plan on discharging the patient home on Sunday if stable. Objective - Vital Signs Vital signs: Vital Signs Temp 98 F 11/23/18 11:39 Pulse 94 11/23/18 11:39 Resp 18 11/23/18 11:39 BP 106/76 11/23/18 11:39 Pulse Ox 92 L 11/23/18 11:39 Intake & Output 11/22/18 11/23/18 11/23/18 18:59 06:59 18:59 Intake Total 1242 1100 462 Output Total 800 800 Balance 442 1100 -338 Weight 78.4 kg 74.6 kg Intake: Oral 1242 550 462 Blood Product 550 Output: Urine 800 800 Other: # Voids 3 1 - Labs CBC & Chem 7: 11/23/18 06:16 11/23/18 06:16 Labs: Abnormal Lab Results - Last 24 Hours (Table) 11/23/18 11/23/18 11/23/18 Range/Units 06:16 06:16 11:11 MCHC 30.7 L (31.0-37.0) g/dL Chloride 113 H (98-107) mmol/L Carbon Dioxide 20 L (22-30) mmol/L POC Glucose (mg/dL) 101 H (75-99) mg/dL Assessment and Plan Plan: Assessment and plan #1 cardiomyopathy, likely viral. Cardiac catheterization revealed only minimal coronary artery disease #2 hypertension #3 left bundle-branch block pattern Plan We will continue the patient on her current medications. She has been educated regarding the LifeVest for prevention of sudden cardiac . The LifeVest will arrive tomorrow and the plan is to possibly discharge the patient home on Sunday stable. DNP note has been reviewed, I agree with a documented findings and plan of care. Patient was seen and examined.
--- NOTE | 2018-11-23 22:57 | PN ---
PROGRESS NOTE DATE OF SERVICE: 11/22/2018 This 63-year-old gentleman admitted with chest pain, had elevated troponins. The patient had features of cardiomyopathy and possible acute myocarditis. Patient being closely monitored at this time. Life vest is pending at this time. No chest pain. No palpitations. No fever. EXAM: Alert and oriented time three. Pulse 94, blood pressure 106/76, respiration 18, temperature 98 degrees, pulse ox 92% on room air. HEENT: Conjunctivae normal. NECK: No jugular venous distention. CARDIOVASCULAR: S1, S2 muffled. RESPIRATIONS: Breath sounds diminished in the bases. No rhonchi. No crackles. ABDOMEN is soft, nontender. Legs are no edema. No swelling. Central nervous system: No focal deficits. LABS: CBC/BMP noted and troponin elevated up to 6.40. ASSESSMENT: 1. Chest pain with elevated troponin 7.3, possible takotsubo cardiomyopathy or possible acute myocarditis. Ejection fraction less than 20% with chronic systolic dysfunction, cardiomyopathy, etiology uncertain. 2. Status post cardiac cath showing minimal coronary artery disease about 20-30 percent with proximal LAD and RCA. 3. Moderate to severe mitral regurgitation. 4. Left bundle branch block on the EKG. 5. History of breast cancer. 6. Hyperlipidemia. RECOMMENDATIONS AND DISCUSSION: Continue current management. Continue with monitoring. Symptomatic treatment. Continue with the diuretics. Continue the rest of the medications. Include beta blockers, antiplatelet agents. Otherwise life vest on Sunday. Further recommendations to follow. MMODL / IJN: [id number] /
[2018-11-24] MEDS: CARVEDILOL 3.125 MG TAB PO SCH ×2 (06:16→17:24)
[2018-11-24] MEDS: ASPIRIN 81 MG PO SCH (08:05)
[2018-11-24] MEDS: SPIRONOLACTONE 25 MG TAB PO SCH (08:05)
[2018-11-24] MEDS: FUROSEMIDE 20 MG TAB PO SCH (08:05)
[2018-11-24] MEDS: ATORVASTATIN 20 MG TAB PO SCH (08:05)
[2018-11-24] MEDS: LOSARTAN 25 MG TAB PO SCH (11:25)
[2018-11-24] MEDS: CALCIUM CARBONATE 500 MG CHEWABLE PO SCH (11:25)
[2018-11-24] MEDS: MULTIVITAMINS, THERA 1 EACH TAB PO SCH (11:25)
[2018-11-24] MEDS ORDERED: NON-FORMULARY DRUG (Alendronate Sodium [Fosamax] 70 MG) PO SCH (15:00)
--- NOTE | 2018-11-24 15:12 | P.PN ---
Subjective Progress Note Date: 11/24/18 This is a pleasant 63-year-old female with no prior documented history of hypertension, nondiabetic, nonsmoker, she does have hyperlipidemia for which she takes a statin, patient also takes a baby aspirin a day as well as calcium supplementation. She presented to the emergency room with symptoms of midsternal chest tightness with associated diaphoresis and a clammy feeling. According to the patient, she has been noticing these symptoms off and on for several months, thinking it was heartburn. The symptoms would usually come last for a couple of minutes and subside. When the symptoms started yesterday, they persisted and for this reason she came to the emergency room for further evaluation and treatment. Initial EKG on arrival here showed a normal sinus rhythm with a left bundle-branch block pattern and nonspecific ST-T wave changes. CTA of the chest was also performed which did not reveal evidence of a pulmonary embolism. Mild aneurysm of the ascending aorta noted. Blood pressure 110/70 with a heart rate in the 70s to 80s, 98% on 3 L of oxygen. White blood cell count is normal, hemoglobin 13.2, platelet count 294. D-dimer 0.9. Sodium 137, potassium 4.2, BUN 18, creatinine 0.7. Magnesium is 2.2. Troponin 0.19, 7.3, 6.4. BNP level 2260. Cholesterol 190, LDL 114, triglycerides 126 and HDL 51. Patient was seen and examined in the emergency room, she denies any chest pain at present. She is currently on IV heparin. We will increase the Lipitor to 80 mg daily continue IV heparin. Patient has been advised to undergo cardiac catheterization, the risks and the benefits were explained to her in detail and she is willing to proceed. We will obtain a stat echocardiogram with Doppler study. 11/23/2018 Patient was taken to the cardiac catheterization lab where she was found to have minimal coronary artery disease with about 20-30% stenosis in the proximal LAD and mid RCA. Ejection fraction of 20% with evidence of global hypokinesia and moderate mitral regurgitation. Patient was seen and examined this morning, overall she feels well, denies any chest discomfort and overall her breathing has been stable. Hemodynamically she is stable. Patient has been educated in detail regarding placement of a LifeVest, this is expected to arrive tomorrow and we will plan on discharging the patient home on Sunday if stable. 11/24/2018 Patient seen and examined this morning, up ambulating without any difficulty. Overall feeling well. LifeVest has been applied. Hemodynamically she is stable , we'll continue current medications, plan for discharge home in 24 hours if stable. Objective - Vital Signs Vital signs: Vital Signs Temp 97.8 F 11/24/18 07:59 Pulse 86 11/24/18 13:15 Resp 18 11/24/18 13:15 BP 107/71 11/24/18 13:15 Pulse Ox 97 11/24/18 13:15 Intake & Output 11/23/18 11/24/18 11/24/18 18:59 06:59 18:59 Intake Total 702 550 480 Output Total 800 700 Balance -98 550 -220 Weight 78.5 kg Intake: Oral 702 550 480 Output: Urine 800 700 Other: # Voids 1 - Exam PHYSICAL EXAMINATION: GENERAL: 63-year-old female in no acute distress at the time of my examination HEENT: Head is atraumatic, normocephalic. Pupils equal, round. Sclera anicteric. Conjunctiva are clear. Mucous membranes of the mouth are moist. Neck is supple. There is no elevated jugular venous pressure.] bruit is heard. HEART EXAMINATION: Heart S1, S2 normal. No murmur or gallop heard. CHEST EXAMINATION: Lungs are clear to auscultation and precussion. No chest wall tenderness is noted on palpation or with deep breathing. LifeVest in place ABDOMEN: Soft, nontender. Bowel sounds are heard. No organomegaly noted. EXTREMITIES: 2+ peripheral pulses with no evidence of peripheral edema and no calf tenderness noted. NEUROLOGIC patient is awake, alert and oriented ?-3. . - Labs CBC & Chem 7: 11/23/18 06:16 11/23/18 06:16 Assessment and Plan Plan: Assessment and plan #1 cardiomyopathy, likely viral. Cardiac catheterization revealed only minimal coronary artery disease #2 hypertension #3 left bundle-branch block pattern Plan We will continue the patient on her current medications. She has been educated regarding the LifeVest for prevention of sudden cardiac . LifeVest has been applied. Plan for discharge home in 24 hours if stable. DNP note has been reviewed, I agree with a documented findings and plan of care. Patient was seen and examined.
[2018-11-24 23:54] VITALS: RESP 16
--- NOTE | 2018-11-25 06:43 | PN ---
PROGRESS NOTE DATE OF SERVICE: 11/24/2018 This 63-year-old woman who was admitted with chest pain possibly cardiomyopathy etiology is uncertain at this time. Cardiology following the patient closely. LifeVest has been arranged. No chest pain or palpitation. No fever. PHYSICAL EXAMINATION: On exam, alert and oriented x3. Pulse is 75, blood pressure 110/74, respiration 15, temperature 98.4, pulse ox 93% on room air. HEENT: Conjunctivae normal. NECK: No jugular venous distention. CARDIOVASCULAR: S1, S2 muffled. RESPIRATORY: Breath sounds diminished at the bases. No rhonchi, no crackles. ABDOMEN: Soft, nontender. LEGS: No edema, no swelling. NERVOUS SYSTEM: No focal deficits. LABS: Troponin 6.430. Otherwise, CBC noted. ASSESSMENT: 1. Chest pain with elevated troponin up to 7.3, possible Takotsubo cardiomyopathy or possible acute myocarditis. Ejection fraction less than 20% with chronic systolic dysfunction, cardiomyopathy etiology uncertain. 2. Status post cardiac catheterization showing minimal coronary artery disease about 20% to 30% with proximal LAD and RCA. 3. On LifeVest. 4. Moderate to severe mitral regurgitation. 5. Left bundle branch block on EKG. 6. History of breast cancer. 7. Hyperlipidemia. RECOMMENDATIONS AND DISCUSSION: Continue current medications, continue symptomatic treatment. Prognosis is extremely guarded because of multiple complex medical issues as mentioned earlier. Closely monitor with Cardiology. Increase ambulation very gradually. Guarded prognosis. Further recommendations to follow. MMODL / IJN: [id number] /
[2018-11-25] MEDS: CARVEDILOL 3.125 MG TAB PO SCH (06:52)
[2018-11-25 08:01] VITALS: TEMP 97.3
[2018-11-25] MEDS: ATORVASTATIN 20 MG TAB PO SCH (08:06)
[2018-11-25] MEDS: FUROSEMIDE 20 MG TAB PO SCH (08:06)
[2018-11-25] MEDS: SPIRONOLACTONE 25 MG TAB PO SCH (08:06)
--- NOTE | 2018-11-25 10:51 | P.PN ---
Subjective Progress Note Date: 11/25/18 This is a pleasant 63-year-old female with no prior documented history of hypertension, nondiabetic, nonsmoker, she does have hyperlipidemia for which she takes a statin, patient also takes a baby aspirin a day as well as calcium supplementation. She presented to the emergency room with symptoms of midsternal chest tightness with associated diaphoresis and a clammy feeling. According to the patient, she has been noticing these symptoms off and on for several months, thinking it was heartburn. The symptoms would usually come last for a couple of minutes and subside. When the symptoms started yesterday, they persisted and for this reason she came to the emergency room for further evaluation and treatment. Initial EKG on arrival here showed a normal sinus rhythm with a left bundle-branch block pattern and nonspecific ST-T wave changes. CTA of the chest was also performed which did not reveal evidence of a pulmonary embolism. Mild aneurysm of the ascending aorta noted. Blood pressure 110/70 with a heart rate in the 70s to 80s, 98% on 3 L of oxygen. White blood cell count is normal, hemoglobin 13.2, platelet count 294. D-dimer 0.9. Sodium 137, potassium 4.2, BUN 18, creatinine 0.7. Magnesium is 2.2. Troponin 0.19, 7.3, 6.4. BNP level 2260. Cholesterol 190, LDL 114, triglycerides 126 and HDL 51. Patient was seen and examined in the emergency room, she denies any chest pain at present. She is currently on IV heparin. We will increase the Lipitor to 80 mg daily continue IV heparin. Patient has been advised to undergo cardiac catheterization, the risks and the benefits were explained to her in detail and she is willing to proceed. We will obtain a stat echocardiogram with Doppler study. 11/23/2018 Patient was taken to the cardiac catheterization lab where she was found to have minimal coronary artery disease with about 20-30% stenosis in the proximal LAD and mid RCA. Ejection fraction of 20% with evidence of global hypokinesia and moderate mitral regurgitation. Patient was seen and examined this morning, overall she feels well, denies any chest discomfort and overall her breathing has been stable. Hemodynamically she is stable. Patient has been educated in detail regarding placement of a LifeVest, this is expected to arrive tomorrow and we will plan on discharging the patient home on Sunday if stable. 11/24/2018 Patient seen and examined this morning, up ambulating without any difficulty. Overall feeling well. LifeVest has been applied. Hemodynamically she is stable , we'll continue current medications, plan for discharge home in 24 hours if stable. 11/25/2018 Patient was seen and examined this morning, feels well, denies any chest pain or difficulty in breathing. She's been up ambulating in the hallway this morning. Hemodynamically she is stable. Objective - Vital Signs Vital signs: Vital Signs Temp 97.3 F L 11/25/18 07:53 Pulse 88 11/25/18 08:00 Resp 16 11/25/18 07:53 BP 95/74 11/25/18 07:53 Pulse Ox 93 L 11/25/18 07:53 Intake & Output 11/24/18 11/25/18 11/25/18 18:59 06:59 18:59 Intake Total 480 600 480 Output Total 700 Balance -220 600 480 Weight 78.1 kg Intake: Oral 480 600 480 Output: Urine 700 Other: Voiding Method Toilet # Voids 2 - Exam PHYSICAL EXAMINATION: GENERAL: 63-year-old female in no acute distress at the time of my examination HEENT: Head is atraumatic, normocephalic. Pupils equal, round. Sclera anicteric. Conjunctiva are clear. Mucous membranes of the mouth are moist. Neck is supple. There is no elevated jugular venous pressure.] bruit is heard. HEART EXAMINATION: Heart S1, S2 normal. No murmur or gallop heard. CHEST EXAMINATION: Lungs are clear to auscultation and precussion. No chest wall tenderness is noted on palpation or with deep breathing. LifeVest in place ABDOMEN: Soft, nontender. Bowel sounds are heard. No organomegaly noted. EXTREMITIES: 2+ peripheral pulses with no evidence of peripheral edema and no calf tenderness noted. NEUROLOGIC patient is awake, alert and oriented ?-3. . - Labs CBC & Chem 7: 11/23/18 06:16 11/23/18 06:16 Assessment and Plan Plan: Assessment and plan #1 cardiomyopathy, likely viral. Cardiac catheterization revealed only minimal coronary artery disease #2 hypertension #3 left bundle-branch block pattern Plan Cardiology's perspective, patient may be able to be discharged home today. She does have her LifeVest in place. Follow-up appointment with Dr. Aguilar in the office. DNP note has been reviewed, I agree with a documented findings and plan of care. Patient was seen and examined.
[2018-11-25 11:12] VITALS: BP 115/73; PULSE 99
[2018-11-25] MEDS: LOSARTAN 25 MG TAB PO SCH (11:12)
[2018-11-25] MEDS: CALCIUM CARBONATE 500 MG CHEWABLE PO SCH (11:12)
[2018-11-25] MEDS: MULTIVITAMINS, THERA 1 EACH TAB PO SCH (11:12)
--- NOTE | 2018-11-26 05:59 | DS ---
DISCHARGE SUMMARY DATE OF SERVICE: 11/25/2018 FINAL DIAGNOSES: 1. Chest pain with elevated troponin up to 7.3, possible takotsubo cardiomyopathy or possible acute myocarditis. 2. Ejection fraction less than 20% with chronic systolic dysfunction, cardiomyopathy, exact etiology uncertain. 3. Status post cardiac catheterization showing minimal coronary artery disease able to 20% to 30% in the proximal left anterior descending artery and right coronary artery. 4. On LifeVest. 5. Moderate to severe mitral regurgitation. 6. Left bundle branch block on EKG. 7. History of breast cancer. 8. History of hyperlipidemia. DISCHARGE DISPOSITION: The patient will be discharged in stable condition with guarded prognosis. HISTORY OF PRESENT ILLNESS: This 63-year-old woman with a past medical history of multiple medical problems admitted with elevated troponin, chest pain, otherwise cardiac cath showed above- mentioned findings, which was suggestive of takotsubo cardiomyopathy. LifeVest was noted. Ejection fraction was found to be very low. Cardiology saw the patient. Medications adjusted. Patient improved significantly. On exam, vitals are stable. CARDIOVASCULAR SYSTEM: S1, S2 muffled. ABDOMEN: Soft. NERVOUS SYSTEM: No focal deficits. DISCHARGE ADVICE: 1. Diet is cardiac. 2. Activity limited until followup. 3. Follow up with Cardiology, Dr. Aguilar, as advised. 4. Follow up with Dr. Nino in 2 to 3 days. Medications are as follows: 1. Fosamax 70 mg Sunday. 2. Aspirin 81 mg p.o. daily. 3. Calcium 600 mg p.o. daily. 4. Multivitamins one p.o. daily. 5. Coreg 3.125 mg p.o. b.i.d. with meals. 6. Lasix 20 mg p.o. daily. 7. Cozaar 12.5 mg daily. 8. Nitrostat 0.4 sublingual p.r.n. 9. Zocor 20 mg q.h.s. 10.Aldactone 25 mg p.o. daily. Once again, the patient will be discharged in stable condition with guarded prognosis. MMODL / IJN: [id number] /
== END 2018-11-25 16:59 | disposition home health service (06) | DRG 286 ==
LOC: EC 16:33 → 3SCARD 18:43 → 2ORMAIN 11-21 09:18 → 3SCARD 11-21 14:51
PROVIDERS: ADMIT Internal Medicine; ATTEND Internal Medicine
PROC: 4A023N7 Measurement of Cardiac Sampling and Pressure, Left Heart, Percutaneous Approach (ICD-10-PCS; principal; 2018-11-20)
PROC: B2151ZZ Fluoroscopy of Left Heart using Low Osmolar Contrast (ICD-10-PCS; principal; 2018-11-20)
PROC: B2111ZZ Fluoroscopy of Multiple Coronary Arteries using Low Osmolar Contrast (ICD-10-PCS; principal; 2018-11-20)
DX: I51.81 Takotsubo syndrome (principal); I40.9 Acute myocarditis, unspecified; I50.22 Chronic systolic (congestive) heart failure; Z79.82 Long term (current) use of aspirin; Z79.83 Long term (current) use of bisphosphonates; I44.7 Left bundle-branch block, unspecified; E78.5 Hyperlipidemia, unspecified; I25.10 Atherosclerotic heart disease of native coronary artery without angina pectoris; I34.0 Nonrheumatic mitral (valve) insufficiency; I71.2 Thoracic aortic aneurysm, without rupture; R79.1 Abnormal coagulation profile; Z85.3 Personal history of malignant neoplasm of breast; Z79.899 Other long term (current) drug therapy
CPT/HCPCS: 36415; 71045; 71275; 80048; 80053; 80061; 82550; 82553; 83735; 83880; 84443; 84484; 85025; 85027; 85347; 85379; 85610; 85652; 85730; 93005; 93306; 93458; 96365; 96366; 96375; 96376; 99291

== ENCOUNTER → 2019-03-10 | Day surgery (SDC) | payer MEDICARE ==
[2019-03-05 11:14] VITALS: BMI 31.3
[~2019-03-10] MED LIST: IOPAMIDOL-250 50ML BTL IV ONE; IOPAMIDOL-370 50ML BTL INJ ONE; SODIUM CHLORIDE 0.9% 1,000 ML IV SCH
[2019-03-10 06:43] VITALS: RESP 18; TEMP 98.2
--- NOTE | 2019-03-10 07:56 | P.PCN ---
Preoperative Diagnosis: Diagnosis Congestive heart failure class III Severe LV dysfunction Left bundle branch block Nonischemic cardiomyopathy Past history of implantation of a port for chemotherapy administration Patient brought in for left upper extremity venogram to assess patency of the central venous circulation prior to biventricular ICD implantation Left upper extremity venogram was performed. He didn't left axillary and subclavian veins but the innominate vein as it emptied into the SVC appeared occluded. 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 The stenosis is tapered and would require venoplasty to accommodate 3 leads for biventricular ICD implantation from the left side Plan She is scheduled in early March for a biventricular ICD We will prep both the left and right sides of the chest and initially obtain access from the left-sided veins It is quite likely that she may require venoplasty If the vein cannot accommodate 3 leads then right-sided implant or a combination of right and left sided implant with tunneling of the leads will be performed Condition: stable Disposition: same day
[2019-03-10 08:46] VITALS: BP 120/59; PULSE 64
== END | disposition home or self-care (01) ==
LOC: CATHEP 05:46
PROVIDERS: ATTEND Internal Medicine Clinical Cardiac Electrophysiology
DX: I42.8 Other cardiomyopathies (principal); I50.9 Heart failure, unspecified; I44.7 Left bundle-branch block, unspecified; E78.5 Hyperlipidemia, unspecified; I25.10 Atherosclerotic heart disease of native coronary artery without angina pectoris; Z79.82 Long term (current) use of aspirin; Z79.899 Other long term (current) drug therapy; Z95.828 Presence of other vascular implants and grafts; Z92.21 Personal history of antineoplastic chemotherapy
CPT/HCPCS: 36005; 75820; Q9966

== ENCOUNTER 2019-03-20 09:28 | Day surgery (SDC) | payer MEDICARE ==
[2019-03-17 15:02] VITALS: BMI 30.9
[~2019-03-20 09:28] MED LIST changes: -IOPAMIDOL-250 50ML BTL IV ONE; -IOPAMIDOL-370 50ML BTL INJ ONE; +LACTATED RINGERS 1,000 ML IV SCH; +ceFAZolin 1,000 MG in SODIUM CHLORIDE 0.9% IRRIGATIO 250 ML IRRIGATION ONE; +ceFAZolin IN SWFI 2 GM/20 ML SYRINGE IVP ONE
[2019-03-20 10:56] LABS: Basophils # (A) 0.1 k/uL (0-0.2); Basophils % (A) 1 %; Eosinophils # (A) 0.2 k/uL (0-0.7); Eosinophils % (A) 3 %; HCT 44.4 % (34.0-46.0); HGB 14.6 gm/dL (11.4-16.0); Lymphocytes # (A) 1.3 k/uL (1.0-4.8); Lymphocytes % (A) 21 %; MCH 29.4 pg (25.0-35.0); MCV 89.3 fL (80.0-100.0); Mean Platelet Volume 7.8; Monocytes # (A) 0.5 k/uL (0-1.0); Monocytes % (A) 8 %; Neutrophils # (A) 3.8 k/uL (1.3-7.7); Neutrophils % (A) 65 %; Platelet Count 317 k/uL (150-450); RBC 4.98 m/uL (3.80-5.40); RDW 14.6 % (11.5-15.5); WBC 5.9 k/uL (3.8-10.6)
[2019-03-20 10:59] LABS: Anion Gap 8 mmol/L; Blood Urea Nitrogen 19 mg/dL (7-17); Calcium 10.1 mg/dL (8.4-10.2); Carbon Dioxide 28 mmol/L (22-30); Chloride 104 mmol/L (98-107); Glucose 78 mg/dL (74-99); Sodium 140 mmol/L (137-145)
[2019-03-20] MEDS ORDERED: fentaNYL (PF) 50 MCG/ML 2 ML AMP ONE (11:10)
[2019-03-20] MEDS ORDERED: MIDAZOLAM 2 MG/2 ML VIAL ONE (11:10)
[2019-03-20] MEDS ORDERED: ETOMIDATE 2 MG/ML 10 ML VIAL ONE (11:10)
[2019-03-20] MEDS ORDERED: LIDOCAINE 1% INJ 10MG/ML (20 ML MDV) ONE (11:10)
[2019-03-20] MEDS ORDERED: ROCURONIUM BROMIDE 10 MG/ML 10 ML VIAL IV ONE (11:10)
[2019-03-20] MEDS ORDERED: NEOSTIGMINE 1 MG/ML 10 ML VIAL ONE (11:10)
[2019-03-20] MEDS ORDERED: SUCCINYLCHOLINE CHLORIDE 100 MG/5 ML SYR IV ONE (11:10)
[2019-03-20] MEDS ORDERED: GLYCOPYRROLATE 0.2 MG/ML 2 ML VIAL ONE (11:10)
[2019-03-20] MEDS: IOPAMIDOL-250 50ML BTL IV ONE ×2 (11:43→11:46)
[2019-03-20 11:48] LABS: Potassium 5.5 mmol/L (3.5-5.1)
[2019-03-20] MEDS ORDERED: SODIUM CHLORIDE 0.9% 250 ML IV ONE (12:00)
[2019-03-20] MEDS ORDERED: IV FLUID CONTINUATION 900 ML IV ONE (12:26)
[2019-03-20] MEDS ORDERED: LIDOCAINE 1% INJ 10MG/ML (20 ML MDV) SQ ONE (12:29)
[2019-03-20] MEDS ORDERED: SODIUM CHLORIDE 0.9% 1,000 ML IV ONE (14:31)
[2019-03-20] MEDS ORDERED: ACETAMINOPHEN IV (For NPO) 1,000 MG in EMPTY BAG 1 BAG IVPB ONE (15:01)
[2019-03-20] MEDS ORDERED: HYDROcodone/APAP 5-325MG 1 EACH TAB PO PRN (15:01)
[2019-03-20] MEDS: ceFAZolin IN SWFI 2 GM/20 ML SYRINGE IVP SCH ×2 (17:22→23:41)
[2019-03-20] MEDS: CARVEDILOL 6.25 MG TAB PO SCH (17:22)
[2019-03-20] MEDS ORDERED: ATORVASTATIN 10 MG TAB PO SCH (21:00)
[2019-03-20] MEDS: ACETAMINOPHEN TAB 325 MG TAB PO PRN (23:57)
[2019-03-21] MEDS: ceFAZolin IN SWFI 2 GM/20 ML SYRINGE IVP SCH ×2 (05:12→11:29)
[2019-03-21] MEDS: ACETAMINOPHEN TAB 325 MG TAB PO PRN ×2 (05:23→12:40)
--- NOTE | 2019-03-21 07:14 | XR ---
EXAMINATION TYPE: XR chest 2V DATE OF EXAM: 03/21/2019 COMPARISON: November 21, 2018 HISTORY: Shortness of breath TECHNIQUE: Frontal and lateral views of the chest are obtained. FINDINGS: Dual-lead pacer is in place with distal leads overlying the right atrium and right ventricle respecti vely. No evidence for pneumothorax. Scattered senescent parenchymal changes noted. Hyperinflation compatible with COPD. No evidence for infiltrate. No evidence for atelectasis. Heart size is stable. Mediastinal structures are stable and grossly unremarkable. No evidence for hilar prominence. Degenerative changes dorsal spine. IMPRESSION: 1. No evidence for acute pulmonary disease.
--- NOTE | 2019-03-21 07:34 | P.DS ---
Providers Attending physician: Brian Aguilar Primary care physician: [facility] Course: Patient is doing well. She has no hematoma no swelling no bruising or soakage at the ICD site She sitting comfortably in bed. No chest discomfort dizziness lightheadedness or palpitations Vitals are stable She is afebrile 97.7F blood pressure 134/81 mmHg respirations normal Breath sounds are clear no rhonchi no crackles Heart sounds S1 and S2 are normal no murmurs or gallops no rub Abdomen soft nontender No lower extremity edema Twelve-lead ECG was reviewed and shows nonselective His bundle pacing with a narrow QRS. Apparently she had a wide QRS of the left bundle branch block m orphology with underlying nonischemic cardio myopathy with congestive heart failure Plan Complete IV antibiotics, device interrogation today and chest x-ray Increase carvedilol to one half tablets twice daily, each tablet 6.25 minute grams Continue all other cardio myopathy medications and follow up the device clinic within one week She has an appointment with me in June Patient Condition at Discharge: Stable Plan - Discharge Summary Discharge Rx Participant: No New Discharge Prescriptions: No Action Multivitamins, Thera [Multivitamin (formulary)] 1 tab PO DAILY Aspirin 81 mg PO DAILY Alendronate Sodium [Fosamax] 70 mg PO MOTTA Calcium Carbonate [Calcium] 1,200 mg PO DAILY Furosemide [Lasix] 20 mg PO DAILY #30 tab Nitroglycerin Sl Tabs [Nitrostat] 0.4 mg SUBLINGUAL Q5M PRN #20 tab PRN Reason: Chest Pain Spironolactone [Aldactone] 25 mg PO DAILY #30 tab Simvastatin [Zocor] 20 mg PO HS #30 tab Carvedilol [Coreg] 6.25 mg PO BID Losartan [Cozaar] 12.5 mg PO DAILY Discharge Medication List Alendronate Sodium [Fosamax] 70 mg PO MOTTA 01/29/18 [History] Aspirin 81 mg PO DAILY 01/29/18 [History] Multivitamins, Thera [Multivitamin (formulary)] 1 tab PO DAILY 01/29/18 [History] Calcium Carbonate [Calcium] 1,200 mg PO DAILY 11/20/18 [History] Furosemide [Lasix] 20 mg PO DAILY #30 tab 11/25/18 [Rx] Nitroglycerin Sl Tabs [Nitrostat] 0.4 mg SUBLINGUAL Q5M PRN #20 tab 11/25/18 [Rx] Simvastatin [Zocor] 20 mg PO HS #30 tab 11/25/18 [Rx] Spironolactone [Aldactone] 25 mg PO DAILY #30 tab 11/25/18 [Rx] Carvedilol [Coreg] 6.25 mg PO BID 03/05/19 [History] Losartan [Cozaar] 12.5 mg PO DAILY 03/05/19 [History] Follow up Appointment(s)/Referral(s): Brian Aguilar MD [STAFF PHYSICIAN] - 1 Week (Device clinic follow-up in 1 week Follow-up with Dr. Bey in 3-1/2 months) Activity/Diet/Wound Care/Special Instructions: PATIENT EDUCATION MATERIAL Instructions following a heart rhythm device implant. 1. Keep dressing DRY for 5 DAYS. You may cover the area with Saran or Cling Wrap, prior to a shower. 2. The dressing will be removed in the Device Clinic at [facility]. Absorbable sutures were used to close the wound. 3. Avoid raising the left arm above the shoulder level. 4 week restriction 4. Avoid arm movements, like backscratching, rubbing the head, or pulling on a cord. 4 weeks restriction 5. Gentle range of motion movements of the shoulder, closest to the incision should be performed to avoid a frozen shoulder. (Pendulum exercises of the shoulder) 6. The opposite arm may be used freely. 7. Avoid driving for 7 days. 8. Avoid activities such as golfing, swimming, weed whacking, lifting more than 10 pounds weight, bowling, gymnastics and weight training/lifting. (6 weeks restriction) 9. Activities such as wood chopping with an axe, pull-ups in the gymnasium, power lifting, arc-welding, being close to home induction cooktops will always be a problem. 10. Arm sling is only a reminder not to raise the arm above the head. You do not need to keep the arm completely immobilized. Your free to move the arm and use it and for normal activities. In case of any problems, please call [facility], Delvin Cabezas, @ [phone], Attention: Device Clinic Device clinic follow-up in 5 days Follow-up with primary circular shear operator in 2-3 months Discharge Disposition: HOME SELF-CARE
[2019-03-21] MEDS ORDERED: CARVEDILOL 6.25 MG TAB PO SCH (08:00)
[2019-03-21 08:41] VITALS: RESP 16
--- NOTE | 2019-03-21 08:45 | PCN ---
PROCEDURE NOTE This is a 63-year-old female with nonischemic cardiomyopathy most likely postviral with severe LV dysfunction. Medical treatment for greater than 3 months resulted in stable heart failure class 2, but with residual left ventricular ejection fraction of 25%-30%. She has underlying left bundle branch block with a wide QRS. A biventricular ICD was recommended for heart failure management in the setting of chronic systolic dysfunction and underlying left bundle branch block. She has had a left upper extremity venogram, but she had a port placed many years back. She did have a stenosis at the junction of the innominate vein and SVC and therefore we prepared for both the right as well as left-sided implant depending upon the degree of stenosis and the ability to pass through the stenotic segment of the vein. The patient's right groin was prepped and draped as per protocol. Patient's left and right shoulder areas were prepped and draped as per protocol. The procedure was performed under general anesthesia and we were ready for tunneling of the leads, if needed. IV antibiotics were administered. Access was obtained in the left axillary vein and two wires were placed in the right heart. Subsequently, an incision was made in the left pectoral area 4 cm and was carried down to the level of the pectoralis muscle. A subfascial pocket was made. Hemostasis was assured. Third access was obtained. Once 3 wires were placed, the sheaths were placed. We selected [employer] ICD lead because of its diameter and this was positioned in the RV apex. This was a [address] [employer] model #7122Q serial #[id number] [employer] senior biostatistician/group leader, this was implanted in the RV apex. The R-waves were 11 mV, pacing impedance 1083 ohms, pacing threshold 1V at 0.5 millisecond, 10V test is negative. Physiologic septal pacing was performed in an attempt to narrow the QRS for cardiac resynchronization. The [employer] model #3830 lead, 69 cm in length was screwed in the His bundle area and nonselective pacing was noted at 5V at 1 millisecond with loss of capture at 2.3V at 1 millisecond. Beyond that, a basal RV pacing was noted. With loss of capture at 0.5 at 1 millisecond, pacing impedance 581 ohms. There was significant narrowing of the QRS to less than 120 milliseconds. Having achieved this goal of cardiac resynchronization with physiologic septal pacing, the atrial lead is placed. This was a [employer] model #5076 serial #[id number], 52 cm in length. This lead is screwed in the right atrial appendage. P waves are 2.9 mV. Pacing impedance of 718 ohms, pacing threshold 1.2V at 0.5 milliseconds. The leads were secured to the underlying pectoralis fascia using 2 nonabsorbable sutures. Pocket was irrigated with antibiotic solution. Leads were connected to the generator (biventricular ICD Amplia MRI, model number DTMB4, serial #[id number]. The leads and generator were placed in subfascial pocket. The wound was closed in 3 layers and dressed per protocol. DDDR pacing 60-140 ppm, short AV delay to promote cardiac syncope resynchronization with physiologic septal pacing and narrow QRS of less than 120 milliseconds. AV delay programmed to 110 milliseconds. The stem to QRS was 39 milliseconds. Appropriate antitachycardia pacing cardioversion defibrillation was programmed. PLAN: IV antibiotics and DFT testing in 3 months after cardiac resynchronization and maximization of heart failure therapy. Patient tolerated the procedure well without any acute complications. MMODL / IJN: [id number] /
--- NOTE | 2019-03-21 08:51 | LTR ---
DATE OF SERVICE: 03/20/2019 RE: Donna Davis Dear Dr. Nino; Donna Davis has nonischemic cardiomyopathy with congestive heart failure and left bundle branch block. She underwent a biventricular ICD implantation successfully for management of heart failure. I will now maximize her medications further and hopefully this improves the heart failure status as well as cardiomyopathy. Thank you for entrusting me with the care of your patient. Warm regards. Sincerely, MD MELISSA Sneed / DEO: [id number] /
[2019-03-21] MEDS: CARVEDILOL 6.25 MG TAB PO SCH (08:56)
[2019-03-21] MEDS ORDERED: LOSARTAN 25 MG TAB PO SCH (09:00)
[2019-03-21] MEDS ORDERED: SPIRONOLACTONE 25 MG TAB PO SCH (09:00)
[2019-03-21] MEDS ORDERED: ASPIRIN 81 MG PO SCH (09:00)
[2019-03-21 12:22] VITALS: BP 106/71; PULSE 66; TEMP 97.7
== END 2019-03-21 12:45 | disposition home or self-care (01) ==
LOC: CATHEP 09:28 → 1SOBS 14:24 → CATHEP 03-21 12:45
PROVIDERS: ATTEND Internal Medicine Clinical Cardiac Electrophysiology
DX: I50.22 Chronic systolic (congestive) heart failure (principal); I42.8 Other cardiomyopathies; E78.5 Hyperlipidemia, unspecified; I44.7 Left bundle-branch block, unspecified; I25.10 Atherosclerotic heart disease of native coronary artery without angina pectoris; I87.1 Compression of vein; Z79.82 Long term (current) use of aspirin; Z79.899 Other long term (current) drug therapy
CPT/HCPCS: 33225; 33249; 80048; 85025; 71046; C1769 ×2; C1892 ×2; C1898; C1777; C1882; J0690 ×3; J2001; Q9966